=== PATIENT | male | born 1955 | race Caucasian/White ===

== ENCOUNTER 2016-06-23 12:16 | Emergency (ER) | payer OTHER ==
[~2016-06-23] VITALS: Ht 185.4 cm; Wt 130.0 kg
[~2016-06-23 12:16] MED LIST: ACTOS15 MG PO; AMOX TR-K CLV1 EAC4 PO; ATORVASTATIN CA40 MG PO; BUSPIRONE HCL10 MG PO; FLUOXETINE HCL40 MG PO; GLIPIZIDE10 MG PO; HUMALOG100 UNIT/1 SQ; INSULIN PUMP SCCONT; LEVEMIR100 UNIT/2 SQ; LISINOPRIL10 MG PO; METFORMIN HCL1000 MG PO; OXYCODONE HCL5 MG PO; OXYCONTIN10 MG PO; SERTRALINE HCL50 MG PO; ZESTRIL,PRINIVIL5 MG PO; ZETIA10 MG PO; ZOLOFT100 MG PO
[2016-06-23 13:18] LABS: EOSINOPHIL (%) 0.2 % (0-5); HEMATOCRIT 46.1 % (38.0-50.0); IMMATURE GRANULOCYTE (%) 0.7 % (0.0-0.7); IMMATURE GRANULOCYTE COUNT 0.1 K/uL; LYMPHOCYTE COUNT 1.3 K/uL (1.0-2.8); MCH 30.9 PG (29.0-34.0); MCHC 35.4 G/DL (30.0-36.0); MCV 87.5 FL (86-99); MEAN PLAT.VOLUME 10.4 uM^3 (9.0-12.4); MONOCYTE (%) 5.1 % (3-12); MONOCYTE COUNT 0.8 K/uL (0-0.8); NEUTROPHIL (%) 85.1 % (45-76); PLATELET COUNT 251 K/uL (156-360); RBC DIS.WIDTH-CV 11.9 % (11.8-14.6); RBC DIS.WIDTH-SD 37.8 % (39-53); RED BLOOD COUNT 5.27 M/uL (4.00-5.50); WHITE BLOOD COUNT 15.3 K/uL (4.1-10.2)
[2016-06-23 13:32] LABS: CHLORIDE 104 mEq/L (99-109); POTASSIUM 4.4 mEq/L (3.7-5.4); SODIUM 138 mEq/L (136-147)
[2016-06-23 13:34] LABS: GLUCOSE 298 mg/dL (70-99)
[2016-06-23 13:36] LABS: ANION GAP 13 MEQ/L (2-14)
[2016-06-23 13:38] LABS: GFR ESTIMATE (CALCULATED) > 59 mL/min/
[2016-06-23 13:39] LABS: UREA NITROGEN (BUN) 21 mg/dL (9-23)
[2016-06-23] MEDS ORDERED: TYLENOL WITH C1 EACH PO (14:55)
[2016-06-23] MEDS ORDERED: PERCOCET 5/31 TABLET PO (15:11)
[2016-06-23 15:48] VITALS: BP 125/78
== END 2016-06-23 15:57 | disposition home or self-care (01) ==
LOC: EME → EDBD 12:16 → EME 12:16
PROVIDERS: Emergency Medicine
DX: S32.018A Other fracture of first lumbar vertebra, initial encounter for closed fracture (principal); S32.028A Other fracture of second lumbar vertebra, initial encounter for closed fracture; S32.038A Other fracture of third lumbar vertebra, initial encounter for closed fracture; S32.048A Other fracture of fourth lumbar vertebra, initial encounter for closed fracture; S32.058A Other fracture of fifth lumbar vertebra, initial encounter for closed fracture; S30.0XXA Contusion of lower back and pelvis, initial encounter; W17.89XA Other fall from one level to another, initial encounter; Y93.89 Activity, other specified; E11.9 Type 2 diabetes mellitus without complications; I10 Essential (primary) hypertension
CPT/HCPCS: 70450; 71260; 72125; 72129; 72132; 73080; 73090; 74177; 80048; 81003; 85025; 99281; 99284; J2270; J3010; J7030

== ENCOUNTER → 2016-12-27 | Outpatient (CLI) | payer OTHER ==
[~2016-12-27] MED LIST changes: +PERCOCET 5/31 TABLET PO; +TYLENOL WITH C1 EACH PO
== END | disposition home or self-care (01) ==
LOC: CDC 09:22
DX: Z01.810 Encounter for preprocedural cardiovascular examination (principal); K43.2 Incisional hernia without obstruction or gangrene
CPT/HCPCS: 93000

== ENCOUNTER 2017-01-27 07:43 | Day surgery (SDC) | payer OTHER ==
[~2017-01-27] VITALS: Ht 185.4 cm; Wt 129.2 kg
[~2017-01-27 07:43] MED LIST changes: +ASPIR 8181 M1 PO; +CLEAR FIBER PO; +COLON HERBA1 CAPSULE PO; +JANUVIA25 M1 PO; -LISINOPRIL10 MG PO; +LYRICA75 MG PO; +PRAVACHOL20 MG PO; +PRINIVIL20 MG PO; +SENOKOT,SENN1 TABLET PO
[2017-01-27 08:11] VITALS: BP 136/73
[2017-01-27 09:02] LABS: ANION GAP 8 MEQ/L (2-14); CHLORIDE 105 MEQ/L (99-109); POTASSIUM 4.2 MEQ/L (3.7-5.4); SAMPLE HEMOLYSIS CHECK 0; SAMPLE ICTERIC CHECK 0; SAMPLE LIPEMIA CHECK 0; SODIUM 137 MEQ/L (136-147)
[2017-01-27 09:07] LABS: GFR ESTIMATE (CALCULATED) > 59 mL/min/ (58.99-99999); GLUCOSE 196 mg/dL (70-99); UREA NITROGEN (BUN) 20 mg/dL (9-23)
[2017-01-27] MEDS ORDERED: NORCO 5/3251 TABLET PO (11:59)
[2017-01-27 12:09] LABS: POINT-OF-CARE METER ID UU13113675
[2017-01-27 12:37] VITALS: BP 123/63
[2017-01-27 13:27] VITALS: BP 123/63
[2017-01-27 15:00] VITALS: BP 143/60
== END 2017-01-27 15:28 | disposition home or self-care (01) ==
LOC: SDC 07:43
PROVIDERS: Surgery
PROC: 0WUF4JZ Supplement Abdominal Wall with Synthetic Substitute, Percutaneous Endoscopic Approach (ICD-10-PCS; principal; 2017-01-27)
DX: K43.0 Incisional hernia with obstruction, without gangrene (principal); E11.9 Type 2 diabetes mellitus without complications; E78.4 Other hyperlipidemia; F41.8 Other specified anxiety disorders; K21.9 Gastro-esophageal reflux disease without esophagitis; Z79.82 Long term (current) use of aspirin; Z79.4 Long term (current) use of insulin
CPT/HCPCS: 80048; 82948; C1781; J0330; J0690; J1100; J1170; J1885; J2405; J2710; J3010; S0020